=== PATIENT | male | born 1960 | race Caucasian/White ===

== ENCOUNTER → 2016-09-07 | Day surgery (SDC) | payer OTHER ==
[~2016-09-07] MED LIST: ASPIRIN81 M2 PO; BISOPROLOL/HCTZ1 TA3 PO; FOLIC ACID PO; KEPPRA750 MG PO; LASIX20 MG PO; THIAMINE HCL100 MG PO; TOPROL XL 50 MG50 MG PO; XARELTO20 MG PO
--- NOTE | ~2016-09-07 | OR ---
Unit #: [id number] #: [id number] Patient: CARLOS MANUEL BENTON [id number] [facility]. [address] [place], [place] [address] [id number] MR#: [id number] NAME: CARLOS MANUEL BENTON ROOM: Date of Procedure: 09/07/2016 Admission Date: 09/07/2016 Surgeon: Froylan Bryan Jr., M.D. : 1960 Attending Physician: Froylan Bryan Jr., M.D. Referring Physician: Roland Sharif M.D. OPERATIVE REPORT INDICATIONS FOR PROCEDURE The patient is a 55-year-old white male, who recently presented to the office complaining of 3 cystic mass of the forehead, these of enlarging in size. It has caused some discomfort. He is brought in this time for excision of these under local anesthesia. The patient understands the procedure including the risks, including that of recurrence, and poor healing and scar tissue with poor cosmetic results and consents. PREOPERATIVE DIAGNOSIS 3 cyst of the forehead. POSTOPERATIVE DIAGNOSIS 3 cyst of the forehead. ANESTHESIA 1% Xylocaine with epinephrine locally. PROCEDURE PERFORMED Excision of 3 cyst of the forehead. DESCRIPTION OF PROCEDURE The patient was positioned in supine position. After being prepped and draped in routine fashion, he was anesthetized locally in the area of the cyst with 1% Xylocaine with epinephrine. The larger cyst to the left of the midline was locally anesthetized with 1% Xylocaine with epinephrine. An elliptical incision made around the cyst being totally excised from the surrounding tissue and down to the deeper subcutaneous tissue near the periosteum. This was done with a #15 blade scalpel. After it was completely removed, hemostasis achieved with Bovie cautery. Specimen sent to pathology and the deeper subcutaneous tissue approximated with interrupted 4-0 Vicryl sutures. Skin edges approximated with continuous 6-0 nylon suture. The other 2 cysts were removed exactly the same without an elliptical portion of skin being removed with them. This was all done under 1% Xylocaine with epinephrine. After all 3 cysts were removed and closed, ointment was applied externally. Estimated blood loss minimal. No drains used. No complications. The patient was discharged in satisfactory condition. Dictated by... Froylan Bryan Jr., M.D. Unit #: [id number] #: [id number] Patient: CARLOS MANUEL BENTON CONNOR/beronica TD: 09/08/2016 01:52 JOB #: [id number] OPERATIVE REPORT Page 1 of 1 X Froylan Bryan MD PROCEDURE OPERATIVE NOTE
== END | disposition home or self-care (01) ==
LOC: CSUR 07:29
DX: L72.0 Epidermal cyst (principal); I11.0 Hypertensive heart disease with heart failure; I50.9 Heart failure, unspecified; I48.91 Unspecified atrial fibrillation; J44.9 Chronic obstructive pulmonary disease, unspecified; G47.30 Sleep apnea, unspecified; F17.210 Nicotine dependence, cigarettes, uncomplicated; Z79.01 Long term (current) use of anticoagulants; Z79.899 Other long term (current) drug therapy; Z98.890 Other specified postprocedural states
CPT/HCPCS: 88304

== ENCOUNTER 2016-10-12 16:55 | Emergency (ER) | payer OTHER ==
[~2016-10-12] VITALS: Ht 182.9 cm; Wt 81.6 kg
[2016-10-12 20:03] LABS: BASOPHIL# 0.1 X10e3 (0-0.3); BASOPHIL% 0.8 % (0-2.5); EOSINOPHIL% 0.4 % (0.0-7.0); HEMATOCRIT 27.7 % (38.0-50.0); LYMPHOCYTE# 2.4 X10e3 (1.0-3.5); LYMPHOCYTE% 28.7 % (17.0-45.0); MEAN CELL VOLUME 91.2 FL (83-96); MEAN CORPUSCULAR HEMOGLOBIN 29.6 PG (28-34); MEAN CORPUSCULAR HGB CONC 32.4 g/dL (30-36); MEAN PLATELET VOLUME 6.9 FL (6.5-11.5); MONOCYTE# 1.1 X10e3 (0-1.0); NEUTROPHIL# 4.8 X10e3 (1.5-7.1); NEUTROPHIL% 57.1 % (40-75); PLATELET COUNT 257 X10e3 (140-420); RED BLOOD COUNT 3.04 X10e (3.90-5.60); RED CELL DISTRIBUTION WIDTH 19.5 % (11.0-15.5); WHITE BLOOD COUNT 8.5 X10e3 (4.0-10.5)
[2016-10-12 20:05] LABS: DIFF IND NO
[2016-10-12 20:21] LABS: INR 1.7; PARTIAL THROMBOPLASTIN TIME 41.8 SECONDS (23.5-31.3); PROTHROMBIN TIME (PATIENT) 18.1 SECONDS (10.0-11.7)
[2016-10-12 20:28] LABS: ALBUMIN SERUM 2.9 g/dL (3.5-5.0); BILIRUBIN, DIRECT 0.4 mg/dL (0.0-0.2); BILIRUBIN,INDIRECT 0.7 mg/dL (0.0-0.9); BILIRUBIN,TOTAL 1.1 mg/dL (0.2-2.0); BUN/CREATININE RATIO 26.66; CALCIUM SERUM 7.9 mg/dL (8.4-10.2); CREATININE SERUM 0.9 mg/dL (0.6-1.4); GLOM FILT RATE Estimated 97.2 mL/min (>60); POTASSIUM 3.6 mmol/L (3.5-5.1)
== END 2016-10-12 21:42 | disposition short-term general hospital (02) ==
LOC: CED 16:55
PROVIDERS: Emergency Medicine
DX: R04.0 Epistaxis (principal); F17.200 Nicotine dependence, unspecified, uncomplicated; Z79.899 Other long term (current) drug therapy
CPT/HCPCS: 30905; 80048; 80076; 85025; 85610; 85730; 99284